=== PATIENT | male | born 1965 | race Two or more races ===

== ENCOUNTER 2020-03-18 22:35 | Emergency (ER) | payer OTHER ==
[~2020-03-18] VITALS: Ht 175.3 cm; Wt 93.9 kg
[~2020-03-18 22:35] MED LIST: NORVASC5 MG PO
[2020-03-18] MEDS ORDERED: TOPROL XL25 M1 (22:51)
[2020-03-18] MEDS ORDERED: DIOVAN320 MG (22:51)
[2020-03-19] MEDS ORDERED: MOBIC15 MG PO (01:17)
== END 2020-03-19 01:24 ==
LOC: ER 22:35
DX: R07.89 Other chest pain (principal); M94.0 Chondrocostal junction syndrome [Tietze]; Z20.828 Contact with and (suspected) exposure to other viral communicable diseases

== ENCOUNTER 2020-03-27 09:58 | Emergency (ER) | payer OTHER ==
[~2020-03-27] VITALS: Ht 175.3 cm; Wt 93.0 kg
[~2020-03-27 09:58] MED LIST changes: +DIOVAN320 MG; +MOBIC15 MG PO; +TOPROL XL25 M1
[2020-03-27] MEDS ORDERED: NAPR500T14 (10:09)
== END 2020-03-27 13:54 | disposition home or self-care (01) ==
LOC: ER 09:58
DX: R00.2 Palpitations (principal); E86.0 Dehydration; Z03.818 Encounter for observation for suspected exposure to other biological agents ruled out

== ENCOUNTER 2020-08-01 11:20 | Outpatient (CLI) | payer OTHER ==
[~2020-08-01 11:20] MED LIST changes: +NAPR500T14
== END 2020-08-01 11:23 | disposition home or self-care (01) ==
LOC: NUCLEAR 11:20
PROVIDERS: ATTEND Family Medicine
DX: M79.661 Pain in right lower leg (principal)

== ENCOUNTER 2020-08-13 07:44 | Emergency (ER) | payer OTHER ==
[~2020-08-13] VITALS: Ht 175.3 cm; Wt 93.9 kg
[2020-08-13] MEDS ORDERED: PROTONIX40 MG PO (07:55)
[2020-08-13] MEDS ORDERED: PEPCID AC20 MG PO (07:56)
[2020-08-13] MEDS ORDERED: KETO10TA2 PO (12:19)
== END 2020-08-13 12:56 | disposition home or self-care (01) ==
LOC: ER 07:44
DX: K57.30 Diverticulosis of large intestine without perforation or abscess without bleeding (principal); N28.1 Cyst of kidney, acquired; R10.32 Left lower quadrant pain; Z03.818 Encounter for observation for suspected exposure to other biological agents ruled out